=== PATIENT | male | born 1965 | race Caucasian/White ===

== ENCOUNTER 2017-06-23 23:05 | Emergency (ER) | payer BC ==
[2017-06-23] MEDS ORDERED: DIPHENHYDRAMINE HCL 50 MG/ML VIAL IV ONE (23:56)
[2017-06-23] MEDS ORDERED: METOCLOPRAMIDE HCL INJ/PF 10 MG/2 ML SDV IV ONE (23:56)
[2017-06-23] MEDS ORDERED: NORMAL SALINE 1000 ML 1,000 ML IV ONE (23:56)
--- NOTE | 2017-06-24 00:01 | ER Document Report ---
ED General - General Chief Complaint: Dizziness Stated Complaint: NAUSEA,HEADACHE Time Seen by Provider: 06/23/17 23:48 Notes: Patient is a 52-year-old male who presents with complaint of sudden onset of a headache and dizziness. He bent forward and felt like his equilibrium was off started spinning. He then developed a headache. He also feels very nauseous and was sweating. Denies any chest pain. No shortness of breath. He said he was playing volleyball on Tuesday and did fall and hit his head but did not lose consciousness. Denies any focal weakness or numbness. No fevers. He does have a history of vertigo in the past. No other complaints at this time. TRAVEL OUTSIDE OF THE [place] IN LAST 30 DAYS: No - Related Data Allergies/Adverse Reactions: No Known Allergies Allergy (Verified 06/23/17 23:09) Past Medical History - Social History Smoking Status: Never Smoker Frequency of alcohol use: None Drug Abuse: None Family History: Reviewed & Not Pertinent Patient has suicidal ideation: No Patient has homicidal ideation: No - Past Medical History Cardiac Medical History: Reports: Hx Hypercholesterolemia Renal/ Medical History: Denies: Hx Peritoneal Dialysis - Immunizations Hx Diphtheria, Pertussis, Tetanus Vaccination: Yes - done today Review of Systems - Review of Systems Notes: My Normal Review Basic REVIEW OF SYSTEMS: CONSTITUTIONAL : Denies fever, chills, or sweats. Denies recent illness. EENT: Denies eye, ear, throat, or mouth pain or symptoms. Denies nasal or sinus congestion. CARDIOVASCULAR: Denies chest pain. RESPIRATORY: Denies cough, cold, or chest congestion. Denies shortness of breath, difficulty breathing, or wheezing. GASTROINTESTINAL: Denies abdominal pain. Nausea. MUSCULOSKELETAL: Denies neck or back pain or joint pain or swelling. SKIN: Denies rash or skin lesions. NEUROLOGICAL: Denies altered mental status or loss of consciousness. Has a headache. Has spinning type sensation. Denies weakness or paralysis or loss of use of either side. Denies problems with gait or speech. Denies sensory or motor loss. ALL OTHER SYSTEMS REVIEWED AND NEGATIVE. Physical Exam - Vital signs Vitals: Temp Pulse Resp BP Pulse Ox 97.6 F 58 L 18 128/69 H 100 06/23/17 23:11 06/23/17 23:11 06/23/17 23:11 06/23/17 23:11 06/23/17 23:11 - Notes Notes: General Appearance: Well nourished, alert, cooperative, no acute distress, mild obvious discomfort. Vitals: reviewed, See vital signs table. Head: no swelling or tenderness to the head Eyes: PERRL, EOMI, Conjuctiva clear Mouth: No decreasd moisturey Neck: Supple, no midline neck tenderness to palpation. Mild right cervical paraspinal musculature tenderness. No step-offs or deformities. Lungs: No wheezing, No rales, No rhonci, No accessory muscle use, good air exchange bilaterally. Heart: Normal rate, Regular rythm, No murmur, no rub Abdomen: Normal BS, soft, No rigidity, No abdominal tenderness, No guarding, no rebound, no abdominal masses, no organomegaly Extremities: strength 5/5 in all extremities, good pulses in all extremities, no swelling or tenderness in the extremities, no edema. Skin: warm, dry, appropriate color, no rash Neuro: speech clear, oriented x 3, normal affect, responds appropriately to questions. Cranial nerves II through XII are intact. Distal sensation intact. Good strength in all 4 extremities. Patient is able to walk but is just a little unsteady when walking and was assisted by his to the bed. Patient' s dizziness improves when he closes his eyes. When he is opens his eyes he gets a little bit worse. He has slight horizontal nystagmus with lateral gaze. Course - Re-evaluation Re-evalutation: 06/24/17 02:04 Patient comes in with complaint of onset of vertigo when he bent forward. We did obtain CT scan of his head but she did have a mild headache associated with the. He said he had more nausea and dizziness and anything. He had vertigo long time ago in the past. Said this time was much worse. I do not suspect that this is a central cause or stroke being that the patient has no further cerebellar signs, he has vertical nystagmus. He has no horizontal nystagmus. No rotary nystagmus. Patient's symptoms are much improved after meclizine and Valium. Patient will be discharged home and is encouraged to follow-up with the ear nose and throat physician. He is encouraged to return to ER if he has worsening recurrence of his symptoms, severe headache, or feels unwell. Patient and his agree with plan and he will be discharged home. Dictation of this chart was performed using voice recognition software; therefore, there may be some unintended grammatical errors. - Vital Signs Vital signs: Temp Pulse Resp BP Pulse Ox 97.6 F 58 L 18 128/69 H 100 06/23/17 23:11 06/23/17 23:11 06/23/17 23:11 06/23/17 23:11 06/23/17 23:11 - EKG Interpretation by Me Additional EKG results interpreted by me: 06/24/17 00:31 EKG is reviewed and interpreted by me. EKG shows normal sinus rhythm with rate of [address] segment elevation or depression. No ischemic T-wave inversions. IN interval, QRS duration, QTc intervals are within normal range. No old EKG available for comparison. Discharge - Discharge Clinical Impression: Vertigo Headache Qualifiers: Headache type: unspecified Headache chronicity pattern: acute headache Intractability: not intractable Qualified Code(s): R51 - Headache Condition: Good Disposition: HOME, SELF-CARE Additional Instructions: CT scan of your head is negative. I suspect you have peripheral vertigo. Please return to the ER immediately if you have recurrent severe headache, any weakness or numbness into your extremities, or worsening of your dizziness. Please follow-up with the ear, nose, and throat doctor for close reevaluation. Please do not drive until your dizziness has been completely resolved for at least 24 hours. Prescriptions: Meclizine HCl 25 mg PO Q6 PRN #21 tablet PRN Reason: Referrals: MUNA ROCHE MD [Primary Care Provider] - Follow up as needed ARIANNE RIVERA MD [[facility]] - Follow up in 3-5 days
--- NOTE | 2017-06-24 01:04 | RADIOLOGY REPORT (SQ) ---
EXAM DESCRIPTION: CT HEAD WITHOUT COMPLETED DATE/TIME: 06/24/2017 12:41 am REASON FOR STUDY: headache COMPARISON: None. TECHNIQUE: Axial images acquired through the brain without intravenous contrast. Images reviewed wi th bone, brain and subdural windows. Images stored on PACS. All CT scanners at this facility use dose modulation, iterative reconstruction, and/or weight based d osing when appropriate to reduce radiation dose to as low as reasonably achievable (ALARA). [facility]: Dose Right [facility]: CareDose [facility]: Dose Right [facility]: Teradose 4D [facility]: Smart Phorest RADIATION DOSE: Up-to-date CT equipment and radiation dose reduction techniques were employed. CTDIv ol: 55.2 - 55.3 mGy. DLP: 2080 mGy-cm. mGy. LIMITATIONS: None. FINDINGS: VENTRICLES: Normal size and contour. CEREBRUM: No masses. No hemorrhage. No midline shift. No evidence for acute infarction. Normal gra y/white matter differentiation. No areas of low density in the white matter. CEREBELLUM: No masses. No hemorrhage. No alteration of density. No evidence for acute infarction. EXTRAAXIAL SPACES: No fluid collections. No masses. ORBITS AND GLOBE: No intra- or extraconal masses. Normal contour of globe without masses. CALVARIUM: No fracture. PARANASAL SINUSES: No fluid or mucosal thickening. SOFT TISSUES: No mass or hematoma. OTHER: No other significant finding. IMPRESSION: NORMAL BRAIN CT WITHOUT CONTRAST. EVIDENCE OF ACUTE STROKE: NO. COMMENT: Quality ID # [id number]: Final reports with documentation of one or more dose reduction techniques (e.g., Automated exposure control, adjustment of the mA and/or kV according to patient size, use of iterative reconstruction technique) TECHNICAL DOCUMENTATION: JOB ID: [id number]- All Rights Reserved
[2017-06-24] MEDS ORDERED: DIAZEPAM INJ 10 MG/2 ML DISP.SYRIN IV ONE (01:19)
[2017-06-24] MEDS ORDERED: MECLIZINE HCL 25 MG TABLET PO ONE (01:19)
[2017-06-24 02:27] VITALS: BP 118/63
--- NOTE | 2017-06-24 07:19 | EKG REPORT ---
SEVERITY:- NORMAL ECG - SINUS RHYTHM : Confirmed by: Niels Finney MD 24-Jun-2017 07:18:49
== END 2017-06-24 02:25 | disposition home or self-care (01) ==
LOC: ER 23:05
DX: R42 Dizziness and giddiness (principal); H55.00 Unspecified nystagmus; R51 Headache; R11.0 Nausea; R61 Generalized hyperhidrosis; Z91.81 History of falling
CPT/HCPCS: 93005; 99284; 96361; 96374; 96375; 70450; 93010; J3360; J1200; J2765; J7030